=== PATIENT | female | born 1970 | race Caucasian/White ===

== ENCOUNTER 2019-03-13 18:13 | Emergency (ER) | payer SELFPAY ==
[2019-03-13 18:19] VITALS: BP 174/106; PULSE 94; TEMP 97.6; BMI 40.9
--- NOTE | 2019-03-13 19:22 | PDOC ---
History of Present Illness - General Chief Complaint: Rash Stated Complaint: ALLERGY Time Seen by Provider: 03/13/19 18:59 - History of Present Illness Initial Comments: 03/13/19 19:17 48-year-old female recently immigrated to the country from the [place] presents for evaluation of a rash which has been present for the last 8 days. She's been in the country for 3 months but developed a rash over the last 8 days no systemic symptoms she planes of itching on her arms and legs. She is also requesting a refill of her high blood pressure medication amlodipine and hydrochlorothiazide. She is provided me with the doses improve of prescription from her country. Past History - Past Medical History Allergies/Adverse Reactions: Allergies Allergy/AdvReac Type Severity Reaction Status Date / Time Penicillins Allergy Verified 03/13/19 18:19 Home Medications: Ambulatory Orders Amlodipine Besylate 10 mg PO DAILY #20 tablet 03/13/19 Hydrochlorothiazide 25 mg PO DAILY #20 tablet 03/13/19 COPD: No HTN: Yes - Suicide/Smoking/Psychosocial Hx Smoking History: Never smoked Review of Systems - Review of Systems Integumentary: Yes: Pruritus, Rash Neurological: No: Headache *Physical Exam - Vital Signs Last Vital Signs Temp Pulse Resp BP Pulse Ox 97.6 F 94 H 18 174/106 H 99 03/13/19 18:16 03/13/19 18:16 03/13/19 18:16 03/13/19 18:16 03/13/19 18:16 - Physical Exam Comments: 03/13/19 19:21 HEAD: NC/AT EYES: Conjuntiva clear MS: Full ROM in all joints without edema NEUROLOGIC: No gross sensory or motor deficits, NVID SKIN: Normal color and temperature there are multiple raised papule areas in groups of 3 on bilateral arms left side of the trunk back and left lower leg 03/13/19 19:22 Medical Decision Making - Medical Decision Making 03/13/19 19:22 These are bug bites, recommended Benadryl for itching and calamine lotion. Follow-up with primary care physician. I will also reviewed her hypertension medication. *DC/Admit/Observation/Transfer Diagnosis at time of Disposition: Hypertension, Bug bites - Discharge Dispostion Disposition: HOME Condition at time of disposition: Stable Decision to Admit order: No - Referrals Referrals: Windy Villalobos MD [Staff Physician] - - Patient Instructions Additional Instructions: Return to the emergency room for worsening symptoms. Benadryl and calamine lotion will help with the itching. High blood pressure medication was renewed. You have a prescription for the next 20 days. Return to the emergency room for any issues and follow-up with internal medicine within the next 1-2 days without fail. - Post Discharge Activity
== END 2019-03-13 19:38 | disposition home or self-care (01) ==
LOC: JERFT 18:13
DX: S40.862A Insect bite (nonvenomous) of left upper arm, initial encounter (principal); S40.861A Insect bite (nonvenomous) of right upper arm, initial encounter; S80.862A Insect bite (nonvenomous), left lower leg, initial encounter; S80.861A Insect bite (nonvenomous), right lower leg, initial encounter; W57.XXXA Bitten or stung by nonvenomous insect and other nonvenomous arthropods, initial encounter; Y93.89 Activity, other specified; Y92.89 Other specified places as the place of occurrence of the external cause; Y99.8 Other external cause status
CPT/HCPCS: 99281-25